=== PATIENT | male | born 1950 | race Caucasian/White ===

== ENCOUNTER 2017-08-22 14:05 | Inpatient (IN) | payer MEDICARE, OTHER ==
[2017-08-22 14:48] LABS: Hemoglobin 10.8 g/dL (14.0-18.0); Mean Corpuscular HGB CONC 33.9 g/dL (32.0-36.0); Mean Corpuscular Hemoglobin 36.2 pg (27.0-31.0); Mean Platelet Volume 7.7 fL (7.4-10.4); Platelet Count 271 thou/uL (130-400); RBC Distribution Width 15.3 % (11.5-14.5); Red Blood Cell (RBC) Count 2.98 mill/uL (4.70-6.10); White Blood Cell (WBC) Count 13.4 thou/uL (4.8-10.8)
[2017-08-22] MEDS ORDERED: ISOVUE-370 76%-LOCM 1 ML ONE (14:56)
[2017-08-22 15:08] LABS: CKMB 0.6 ng/mL (0-6.6); Troponin I Less than 0.010 ng/mL (< 0.028)
[2017-08-22 15:09] LABS: Anisocytosis SLIGHT = 6-15 cells (100X) (0-5/hpf); Band 9 % (5-11); Eosinophils 1 % (0-10); Lymphocytes 18 % (21-51); MDiff Complete? YES; Macrocytosis SLIGHT = 6-15 cells (100X) (0-5/hpf); Metamyelocyte 2 % (0-0); Monocytes 8 % (0-10); Myelocyte 6 % (0-0); Neutrophil 56 % (42-75); Nucleated RBC 1 % (0); PLT Morphology Comment Appears Adequate; Polychromasia SLIGHT = 2-3 cells (100X) (0-2/hpf)
[2017-08-22 15:14] LABS: Bilirubin, Total 33.5 mg/dL (0.2-1.2)
[2017-08-22 15:15] LABS: ALT (SGPT) 169 U/L (8-55); AST (SGOT) 145 U/L (5-34); Albumin 2.9 g/dL (3.4-4.8); Alkaline Phosphatase 1636 U/L (40-150); Anion Gap 13 mmol/L (10-20); BUN (Urea Nitrogen) 15 mg/dL (8.4-25.7); Calc. Creatinine Clearance 0 mL/min (70-130); Calcium 8.9 mg/dL (7.8-10.44); Carbon Dioxide 22 mmol/L (23-31); Chloride 108 mmol/L (98-107); Estimated GFR-MDRD Greater than 90; Globulin 3.3 g/dL (2.4-3.5); Glucose 85 mg/dL (80-115); Lipase 16 U/L (8-78); Protein, Total 6.2 g/dL (5.8-8.1); Sodium 140 mmol/L (136-145)
[2017-08-22 15:56] LABS: INR-International Normal Ratio 1.1; Prothrombin Time 14.8 SEC (12.0-14.7)
[2017-08-22 15:57] LABS: PTT 41.1 SEC (22.9-36.1)
[2017-08-22 16:15] LABS: Blood, Urine Negative (Negative); Leukocyte Trace (Negative); Specific Gravity, Urine 1.015 (1.005-1.030); Urobilinogen 0.2 mg/dL (0.2-1.0)
[2017-08-22 16:17] LABS: Bilirubin Large (Negative); Clarity Hazy (Clear); Glucose, Urine (Dipstick) Unable to Interpret mg/dL (Negative); Nitrite Unable to Interpret (Negative); Protein, Urine (Dipstick) Unable to Interpret mg/dL (Neg-Trace)
[2017-08-22] MEDS ORDERED: Ondansetron HCl/PF 4 MG/2 ML Vial IVP PRN (16:24)
[2017-08-22] MEDS ORDERED: Piperacillin/Tazobactam 4.5 GM VIAL ONE (16:33)
--- NOTE | 2017-08-22 16:36 | CT ---
CONTRAST ENHANCED CT ABDOMEN AND PELVIS: HISTORY: Abdominal pain. TECHNIQUE: Contrast enhanced CT images of the abdomen and pelvis are obtained. FINDINGS: Areas of air space opacity are seen in both lung bases, compatible with bibasilar pneumonia. Calcification of the mitral and aortic valve is seen. There is extensive intrahepatic biliary dilatation. The common bile duct is massively distended, tacos suring up to 2.8 cm (28 mm). The gallbladder is also distended with some thickening, concerning for possible cholecystitis. There is splenomegaly noted with the spleen having three-dimensional measurements of 6.2 x 15.4 x 13. 6 cm. Some calcifications are seen in the splenic artery. Aortic calcification is also seen. The small bowel is unremarkable. There is abnormal thickening in a segment of the hepatic flexure, concerning for colitis versus possi ble mass. A moderate amount of stool is seen in the colon. Extensive sigmoid colonic diverticulosis is also se en. IMPRESSION: 1. Marked common bile duct dilatation with intrahepatic dilatation. Findings concerning for a commo n bile duct mass. Correlate with a gastrointestinal consultation. 2. Gallbladder distention. 3. Hepatic flexure area of possible colonic thickening, concerning for colitis versus mass. POS: [facility]
[2017-08-22] MEDS ORDERED: hydrOXYzine 25 MG TAB ONE (16:40)
[2017-08-22 16:41] LABS: Bacteria/HPF 4+ HPF (None Seen); Hyaline Casts/LPF NONE SEEN LPF (0-3 Hyaline); RBC/HPF 0-3 HPF (0-3); Squamous Epithelial 0-3 HPF (0-3)
[2017-08-22] MEDS ORDERED: Hydrocortisone Acetate 25 MG Suppository PR SCH (17:30)
[2017-08-22 17:58] LABS: Troponin I Less than 0.010 ng/mL (< 0.028)
[2017-08-22 21:03] LABS: Troponin I Less than 0.010 ng/mL (< 0.028)
[2017-08-22] MEDS: Docusate 100 MG CAP PO SCH (21:30)
[2017-08-22] MEDS: Famotidine 20 MG TAB PO SCH (21:30)
--- NOTE | 2017-08-22 22:36 | HP ---
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 HISTORY OF PRESENT ILLNESS: Patient states that he was not feeling good for the last 2 weeks or so. He has been feeling nauseated and has not been able to eat or drink. Patient is not a good historia n. He is also hard of hearing. His mother and aunt are at bedside who are not good historians as we ll. No complaints of abdominal pain, but has some mild discomfort which is unable to describe furthe r. No complaints of chest pain or palpitation. The patient states he has been diagnosed with cirrho sis from last 1 year. He has also stopped drinking alcohol for the last one year now. PAST MEDICAL AND SURGICAL HISTORY: History of cirrhosis, diagnosed 1 year back and had seen Dr. Jah Perera in the outpatient setting; right wrist surgery; dyslipidemia; prior history of alcohol abuse. CURRENT MEDICATIONS: The patient is on Lipitor 80 mg p.o. daily, aspirin 81 mg p.o. daily. ALLERGIES: No known drug allergies. PERSONAL HISTORY: Quit drinking alcohol 1 year back. Prior to which he has had more than six-pack b eer daily for nearly 30 years or so. Smokes 1-2 packs a day. Lives with his mom and aunt. FAMILY HISTORY: Father at the age of 66 years, he was a smoker and alcoholic as well. Mother i s at bedside and she says she is healthy except for age-related arthritis. CODE STATUS: FULL. REVIEW OF SYSTEMS: The following complete review of systems was negative, unless otherwise mentioned in the HPI or below: Constitutional: Weight loss or gain, ability to conduct usual activities. Sk in: Rash, itching. Eyes: Double vision, pain. ENT/Mouth: Nose bleeding, neck stiffness, pain, te nderness. Cardiovascular: Palpitations, dyspnea on exertion, orthopnea. Respiratory: Shortness of breath, wheezing, cough, hemoptysis, fever or night sweats. Gastrointestinal: Poor appetite, abdom inal pain, heartburn, nausea, vomiting, constipation, or diarrhea. Genitourinary: Urgency, frequenc y, dysuria, nocturia. Musculoskeletal: Pain, swelling. Neurologic/Psychiatric: Anxiety, depressio n. Allergy/Immunologic: Skin rash, bleeding tendency. Power of bb shot packer is his mother. The patient has a daughter whom he is not in touch with per family at bedside here. PHYSICAL EXAMINATION: GENERAL: The patient is a 67-year-old male who has got severe icterus, but not in any distress. VITAL SIGNS: Blood pressure 128/60, pulse 66 per minute, respiratory rate 18 per minute, temperature 98 degrees Fahrenheit, saturating 100% on room air. NECK: Supple. No elevated JVD. EYES: Extraocular muscles intact. The severe icterus plus. CARDIOVASCULAR: S1, S2 heard. Regular rhythm. RESPIRATORY: Air entry 1+ bilateral. Scattered rhonchi plus bilateral. ABDOMEN: Distended. Liver is palpable. No rigidity or guarding. EXTREMITIES: There is 1+ peripheral edema. No calf tenderness. VASCULAR SYSTEM: Peripheral pulses 1+ bilateral. No ischemic ulcerations or gangrene. CENTRAL NERVOUS SYSTEM: No gross focal deficits noted. 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 PSYCHIATRIC: The patient's mood is euthymic. No hallucinations or delusions. LABORATORY AND X-RAY FINDINGS: White count of 13, H and H 10 and 31, platelet count 271,000, MCV is 107 with 56% neutrophils. PT/INR is 14 and 1.1, PTT 41. Serum bicarbonate is 22, potassium is 3.0. Total bilirubin 33.5, AST 145, ALT 169, alkaline phosphatase 1636. Ammonia levels are 39. First se t of cardiac enzymes are negative. BNP is 150, albumin is 2.9. Lipase is 16. CT of the abdomen and pelvis has been done and the official report is pending at present. CLINICAL IMPRESSION AND PLAN: The patient will be admitted to medical floor for end-stage liver dise ase with worsening and acute hepatic failure. We will follow up on the CAT scan results and also obt ain consultation with Dr. Rishi Perera who has seen him before. It is unclear if he can have a palliat celi measure to relieve his itching with likely obstructive jaundice. I have already discussed the la b findings with patient's mom and his aunt at bedside. They are all aware of very poor prognosis. Reema maldonado patient will require hospice. We will revisit once all the lab work and GI opinion is rendered in the morning. If family have any issues with taking care of him and most likely he will deteriora te if nothing can be done for his end-stage liver disease, then patient would require senior care pl acement. Case management consultation will be requested for the same if family prefers to do that. Code status for now is FULL CODE. We will revisit code status along with probable hospice placement in the morning.
[2017-08-23] MEDS: diphenhydrAMINE 50 MG/ML VIAL IVP PRN ×2 (00:01→08:08)
[2017-08-23 04:30] LABS: ALT (SGPT) 147 U/L (8-55); AST (SGOT) 136 U/L (5-34); Albumin 2.8 g/dL (3.4-4.8); Alkaline Phosphatase 1529 U/L (40-150); Anion Gap 12 mmol/L (10-20); BUN (Urea Nitrogen) 14 mg/dL (8.4-25.7); Calc. Creatinine Clearance 0 mL/min (70-130); Calcium 9.3 mg/dL (7.8-10.44); Carbon Dioxide 20 mmol/L (23-31); Chloride 108 mmol/L (98-107); Estimated GFR-MDRD Greater than 90; Globulin 3.3 g/dL (2.4-3.5); Glucose 85 mg/dL (80-115); Potassium 3.3 mmol/L (3.5-5.1); Protein, Total 6.1 g/dL (5.8-8.1); Sodium 137 mmol/L (136-145)
[2017-08-23 04:39] LABS: Bilirubin, Total 32.9 mg/dL (0.2-1.2)
[2017-08-23 05:11] LABS: Band 10 % (5-11); Eosinophils 2 % (0-10); Hemoglobin 11.2 g/dL (14.0-18.0); Lymphocytes 9 % (21-51); MDiff Complete? YES; Mean Corpuscular HGB CONC 34.1 g/dL (32.0-36.0); Mean Corpuscular Hemoglobin 36.2 pg (27.0-31.0); Mean Platelet Volume 7.7 fL (7.4-10.4); Metamyelocyte 5 % (0-0); Monocytes 9 % (0-10); Myelocyte 8 % (0-0); Neutrophil 56 % (42-75); PLT Morphology Comment Appears Adequate; Platelet Count 284 thou/uL (130-400); RBC Distribution Width 15.5 % (11.5-14.5); Reactive Lymphocytes 1 % (0-10); White Blood Cell (WBC) Count 14.1 thou/uL (4.8-10.8)
[2017-08-23] MEDS: Docusate 100 MG CAP PO SCH ×2 (08:08→20:20)
[2017-08-23] MEDS: Famotidine 20 MG TAB PO SCH ×2 (08:08→20:22)
[2017-08-23] MEDS ORDERED: Prevnar 13-Val Conj/PF 0.5 ML SYRINGE IM ONE (09:00)
[2017-08-23] MEDS ORDERED: Non-Formulary Item 1 EACH (Atorvastatin Calcium [Lipitor] 80 MG) PO SCH (09:00)
--- NOTE | 2017-08-23 13:08 | PDOC.PN ---
- Subjective Encounter Start Date: 08/23/17 Encounter Start Time: 13:17 Patient seen and examined today. admitted for elevated transaminases, cirrhosis with evidence of common bile duct dilatation. Concerns for possible malignancy. He has no complaints today and itching better controlled. No acute events overnight. - Objective MAR Reviewed: Yes Vital Signs & Weight: Vital Signs (12 hours) Temp Pulse Resp BP Pulse Ox 08/23/17 08:00 98.2 F 60 16 08/23/17 07:33 98.2 F 60 16 101/47 L 100 I&O: 08/22/17 08/23/17 08/24/17 06:59 06:59 06:59 Intake Total 125 Balance 125 Result Diagrams: 08/23/17 03:54 08/23/17 03:54 Phys Exam - Physical Examination Constitutional: NAD HEENT: PERRLA, moist MMs, oral pharynx no lesions Ictreus Neck: no JVD, supple, full ROM Respiratory: no wheezing, no rales, no rhonchi, clear to auscultation bilateral Cardiovascular: RRR, no significant murmur, no rub Gastrointestinal: soft, non-tender, no distention, positive bowel sounds Musculoskeletal: no edema, pulses present Neurological: non-focal, moves all 4 limbs Psychiatric: normal affect, A&O x 3 Skin: no rash Deviation from normal: Jaundice Dx/Plan (1) Acute liver failure Status: Acute Qualifiers: Hepatic coma status: without hepatic coma Qualified Code(s): K72.00 - Acute and subacute hepatic failure without coma (2) Cirrhosis, alcoholic Code(s): K70.30 - ALCOHOLIC CIRRHOSIS OF LIVER WITHOUT ASCITES Status: Chronic Qualifiers: Ascites presence: without ascites Qualified Code(s): K70.30 - Alcoholic cirrhosis of liver without ascites (3) Hypokalemia Code(s): E87.6 - HYPOKALEMIA Status: Acute (4) Common bile duct dilatation Code(s): K83.8 - OTHER SPECIFIED DISEASES OF BILIARY TRACT Status: Acute Comment: As seen on CT abdomen. ? mass. GI consulted. - Plan cont current plan of care, plan discussed w/ family, out of bed/ambulate, DVT proph w/SCDs GI consulted for common bile duct dilatation with concerns for possible malignant process. F/u GI recommendations Continue supportive care. Review of Systems - Medications/Allergies Allergies/Adverse Reactions: Allergies Allergy/AdvReac Type Severity Reaction Status Date / Time No Known Drug Allergies Allergy Verified 01/30/13 02:50 Medications: Current Medications Albuterol/Ipratropium (Duoneb) 3 ml NEB [id number] [facility] Last Admin: 08/23/17 13:01 Dose: Not Given Atorvastatin Calcium (Lipitor) 80 mg PO HS [facility] Diphenhydramine HCl (Benadryl) 25 mg IVP Q6H PRN PRN Reason: Itching Last Admin: 08/23/17 08:08 Dose: 25 mg Docusate Sodium (Colace) 100 mg PO BID [facility] Last Admin: 08/23/17 08:08 Dose: 100 mg Famotidine (Pepcid) 20 mg PO BID [facility] Last Admin: 08/23/17 08:08 Dose: 20 mg Lactulose (Lactulose) 20 gm PO BID [facility] Last Admin: 08/23/17 08:08 Dose: 20 gm Ondansetron HCl (Zofran) 4 mg IVP Q6H PRN PRN Reason: Nausea/Vomiting Potassium Chloride (K-Dur) 40 meq PO BID-[facility] Stop: 08/25/17 08:01 Sodium Chloride (Flush - Normal Saline) 10 ml IVF Q12HR [facility] Sodium Chloride (Flush - Normal Saline) 10 ml IVF PRN PRN PRN Reason: Saline Flush
[2017-08-23] MEDS ORDERED: diphenhydrAMINE 25 MG CAP PO PRN (16:18)
[2017-08-23] MEDS ORDERED: Potassium Chloride 20 MEQ TAB PO SCH (17:00)
[2017-08-23 19:32] VITALS: BP 111/56; TEMP 98
[2017-08-23] MEDS ORDERED: Atorvastatin Calcium 40 MG TAB PO SCH (21:00)
--- NOTE | 2017-08-24 01:24 | CON ---
DATE OF CONSULTATION: 08/23/2017 REQUESTING PHYSICIAN: Lucina Avina MD REASON FOR CONSULTATION: Elevated LFTs. HISTORY OF PRESENT ILLNESS: Elliot Og is a 67-year-old man whom I actually met almost exactly 1 y ear ago in 08/2016 in the clinic. He was referred to me at that time for painless jaundice with sign ificantly elevated LFTs with total bilirubin 21 at that time. He was complaining of acholic stools a nd diarrhea. This was in the context of quite heavy alcohol abuse for many years up until 2 months p rior to his presentation. At that time, I shared with him my concern for possible malignancy given t he presentation with painless jaundice and acholic stool. I had ordered extensive lab workup and abd ominal imaging. However, the patient never followed up for any of this. He presented to the hospital and was admitted yesterday with complaints of generalized fatigue and ma laise for the past couple of weeks, as well as several weeks of significant diarrhea. He says that t he stool is quite loose and urgent and falcon when it comes out. There is no melena or hematochezia. He still denies any abdominal pain, nausea, or vomiting. He is deeply jaundiced as he was even at t his point last year. He tells me that on our recommendations he completely quit drinking alcohol ove r a year ago and has not had any since. He still does smoke 1-2 packs of cigarettes per day. On adm ission, laboratory studies demonstrated severe jaundice, now with total bilirubin 32.9 and alkaline p hosphatase 1529. Notably, ammonia level is normal. Creatinine is only 0.68. INR is normal at 1.1 a nd platelets are normal at 284, but a CT of the abdomen and pelvis demonstrates severe common bile du ct dilation up to 2.8 cm, some gallbladder distention, as well as some splenomegaly. There was some thickening in the segment of the hepatic flexure as well concerning for colitis versus possible mass. Overall, findings are concerning for possible common bile duct mass. REVIEW OF SYSTEMS: Full review of systems including constitutional, head, eyes, ears, nose, throat, GI, , cardiovascular, respiratory, musculoskeletal, and neurologic systems is negative except as no camelia in the HPI. PAST MEDICAL HISTORY: Right wrist surgery; hyperlipidemia; alcohol abuse, abstinent now for greater than 1 year; tobacco abuse. OUTPATIENT MEDICATIONS: Lipitor 80 mg daily, aspirin 81 mg daily. ALLERGIES: No known drug allergies. SOCIAL HISTORY: The patient quit drinking alcohol a year ago. He smokes 1-2 packs of cigarettes per day. He drank quite heavily prior to one year ago. FAMILY HISTORY: Father at age 66. His mother is still living. PHYSICAL EXAMINATION: VITAL SIGNS: Temperature 98.2, pulse 60, blood pressure 111/52, 100% oxygen saturation on room air. GENERAL: Chronically ill-appearing 67-year-old man, walking around the room in no acute distress. SKIN: He is deeply jaundiced with hyperpigmented skin. No rash visible or palpable. EYES: Deep scleral icterus. Extraocular movements intact. ENT: Mucous membranes moist. No oral lesions. LYMPHATICS: No submandibular or supraclavicular lymphadenopathy. THYROID: Nontender to palpation. HEART: Regular rate and rhythm. LUNGS: Clear to auscultation bilaterally. ABDOMEN: Bowel sounds present. Soft and nontender to palpation. EXTREMITIES: No peripheral edema. VESSELS: Radial pulses 2+ bilaterally. NEUROLOGIC: Cranial nerves II-XII intact bilaterally. No focal deficits. LABORATORY STUDIES: WBC 14.1, hemoglobin 11.2, platelets 284. INR 1.1, BUN 14, creatinine 0.68. Am monia only 39. Troponin is negative. Total bilirubin 32.9, alkaline phosphatase is 1529, AST 136, A LT 147, albumin 2.8. IMAGING STUDIES: CT of the abdomen and pelvis demonstrates extensive intrahepatic biliary dilation a nd massive distention of the common bile duct up to 2.8 cm, concerning for common bile duct mass. Th e gallbladder is also distended with some thickening. There is splenomegaly to 15.4 cm, as well as s ome abnormal thickening in a segment of the hepatic flexure, there is extensive sigmoid colonic diver ticulosis. ASSESSMENT: 1. Biliary obstruction, concerning for malignancy. 2. Painless jaundice, secondary to biliary obstruction. 3. Diarrhea, likely secondary to biliary obstruction. PLAN: I had a long discussion with the patient and his family this afternoon regarding his CT findin gs and my overall clinical impression. Even one year ago, I was quite concerned that he had a possib ly malignant obstructive biliary process, and he failed to follow up at that time. I do not think th at his LFT elevation is consistent with decompensation of cirrhosis, though he may indeed have compen sated cirrhosis as well. His biliary obstruction certainly needs further workup. I think he would b e best served at a tertiary center with capability for endoscopic ultrasound for better assessment of the common bile duct and biopsies of any common bile duct or pancreatic lesion. ERCP could be perfo rmed at the same time as endoscopic ultrasound. I think this would be preferable to our going ahead with ERCP only here, and we do not have the capability for endoscopic ultrasound. There is no eviden ce of cholangitis, so no particular urgency to the ERCP. I will try to arrange for transfer to a tertiary center for endoscopic ultrasound. In the meantime, continue supportive care.
== END 2017-08-23 23:45 | disposition short-term general hospital (02) | DRG 441 ==
LOC: ERS 14:05 → T4-B 17:48
PROVIDERS: ADMIT Internal Medicine; ATTEND Internal Medicine
DX: K72.00 Acute and subacute hepatic failure without coma (principal); K83.1 Obstruction of bile duct; H91.90 Unspecified hearing loss, unspecified ear; E78.5 Hyperlipidemia, unspecified; Z79.82 Long term (current) use of aspirin; Z87.891 Personal history of nicotine dependence; K70.30 Alcoholic cirrhosis of liver without ascites; E87.6 Hypokalemia; K83.8 Other specified diseases of biliary tract; F10.11 Alcohol abuse, in remission
CPT/HCPCS: 36415; 74177; 80053; 81003; 81015; 82140; 82553; 83690; 83735; 83880; 84484; 85025; 85610; 85730; 87040; 87077; 87086; 87186; 93005; 94640; 96365; A4216; G8978-GP-CI; G8979-GP-CI; G8980-GP-CI; J1200; J2543; J7620